=== PATIENT | male | born 1995 | race Caucasian/White ===

== ENCOUNTER 2017-09-08 22:56 | Emergency (ER) | payer OTHER ==
[~2017-09-08] VITALS: Ht 188 cm; Wt 68.0 kg
[2017-09-08] MEDS ORDERED: FAMOTIDINE 20 MG (PEPCID) TABLET PO STA (23:24)
--- NOTE | 2017-09-08 23:24 | ED Chest Pain ---
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 PT DESCRIBES PAIN "BURNING". NO OTHER C/O VOICED Nursing Sepsis Screen: No Definite Risk Source: patient, other Exam Limitations: no limitations History of Present Illness Date Seen by Provider: Sep 08, 2017 Time Seen by Provider: 23:13 Initial Comments The patient presents to the ER by private conveyance with a chief complaint of approximately one to 2 hours ago he started experiencing a pain in the center of his chest that was gripping and feeling burning sensation. He does have a history of acid reflux and has used Tums in the past that of help however he did not take any Tums tonight. He is not on any medications. He does have a history of pectus excavatum. He says it hurts when he takes deeper breaths or if we push on his chest. He does not have any cough, history of asthma, smoking , coronary disease, family primary history of coronary disease, high blood pressure, cholesterolemia, thyroid disorder, diabetes. He has not had any recent trauma. He said he was just sitting on his couch after eating when the pain came on. He describes it as moderate to severe. He does not have allergies to any medicines nor does he take any routine medicines. Allergies and Home Medications Allergies Coded Allergies: No Known Drug Allergies (Unverified , 09/08/17) Patient Home Medication List Home Medication List Reviewed: Yes Review of Systems Constitutional: No chills, No fever EENTM: No Blurred Vision, No Double Vision Respiratory: Denies Cough, Denies Shortness of Air Cardiovascular: See HPI, Chest Pain; Denies Edema, Denies Irregular Heart Rate , Denies Lightheadedness, Denies Palpitations, Denies Syncope Gastrointestinal: Denies Abdomen Distended, Denies Abdominal Pain, Denies Constipated, Denies Diarrhea Genitourinary: Denies Discharge, Denies Drainage Musculoskeletal: No back pain, No joint pain Past Frjxobl-Jgaaxe-Dcmzea Hx Patient Social History Alcohol Use: Denies Use Recreational Drug Use: No Smoking Status: Never a Smoker Recent Foreign Travel: No Contact w/Someone Who Travel: No Recent Infectious Disease Expo: No Recent Hopitalizations: No Physical Abuse: No Sexual Abuse: No Mistreated: No Fear: No Past Medical History Surgeries: No Respiratory: No Cardiac: Yes (PECTUS EXCAVATUM) Genitourinary: No Gastrointestinal: No Musculoskeletal: No Endocrine: No HEENT: No Cancer: No Psychosocial: No Nursing Suicide Risk Score: 0 Blood Disorders: No Physical Exam Vital Signs Vital Signs - First Documented Capillary Refill : Less Than 3 Seconds General Appearance: No Apparent Distress, WD/WN HEENT: PERRL/EOMI, TMs Normal, Normal ENT Inspection, Pharynx Normal Neck: Full Range of Motion, Normal Inspection, Non Tender, Supple Respiratory: Lungs Clear, Normal Breath Sounds, No Accessory Muscle Use, No Respiratory Distress, Other (chest pain recreatable by direct pressure over the manubrium and left of manubrium.) Cardiovascular: Regular Rate, Rhythm, No Edema, No Gallop, No Murmur, Normal Peripheral Pulses Neurologic/Psychiatric: Alert, Oriented x3 Skin: Normal Color, Warm/Dry Progress/Results/Core Measures My Orders Orders - JONI VU Lidocaine 2% Viscous 15 Ml (Xylocaine Vi (09/08/17 23:30) Antacid Suspension (Mylanta Suspension (09/08/17 23:30) Famotidine Tablet (Pepcid Tablet) (09/08/17 23:24) Medications Given in ED Current Medications Medications Dose Ordered Sig/Franky Route Start Time Stop Time Status Last Admin Dose Admin Al Hydrox/Mg Hydrox/Simethicone 30 ml ONCE ONCE PO 09/08/17 23:30 09/08/17 23:31 DC 09/08/17 23:32 30 ML Lidocaine HCl 15 ml ONCE ONCE PO 09/08/17 23:30 09/08/17 23:31 DC 09/08/17 23:32 15 ML Vital Signs/I&O 09/08/17 09/08/17 23:04 23:04 Temp 98.5 Pulse 65 Resp 18 B/P (MAP) 132/64 (86) Pulse Ox 99 O2 Delivery Room Air Room Air Blood Pressure Mean: 86 Progress Note #1: Time: 23:24 Progress Note The patient appears to be having chest wall pain on history uncle examination however he also has a history of GERD sore and give him a GI cocktail that doesn 't make any improvement then we'll recommend NSAIDs. Progress Note #2: Time: 23:59 Progress Note On reexamination the patient's pain is unchanged after the GI cocktail or Pepcid. His pain is still reproducible to direct palpation and deep inspiration. Discussed all the other possibilities lungs, pleurisy, esophageal, coronary, vasculature, clots, soft tissue and is still most likely chest wall pain. His girlfriend's concerned that we should maybe do an EKG to workup whether or not he has coronary or other heart disorder. The patient's pulse is still very regular and steady in the mid 60s. We discussed the risks benefits and alternatives to doing this and offered him an EKG and troponin. The patient declined the EKG and troponin at this time but wants to follow up with his primary care physician outpatient. We offered him a dose of NSAIDs tonight and ER but he says he has ibuprofen at home he would prefer to take. Departure Impression Primary Impression: Anterior chest wall pain Additional Impression: Pectus excavatum Disposition: HOME, SELF-CARE Condition: Stable Departure-Patient Inst. Decision time for Depature: 00:02 Referrals: NO,LOCAL PHYSICIAN (PCP) Primary Care Physician Patient Instructions: Chest Pain That Is Not Caused by the Heart (DC) Add. Discharge Instructions: Chest wall pain is best treated with NSAIDs such as ibuprofen 800 mg, 4 tablets every 8 hours [id number] for about 2 weeks. Optionally you can use Naprosyn 2 tablets twice a day for 2 weeks. If you're still having pain in addition to this you can use 1000 mg of Tylenol every 8 hours as needed. Plan to follow up with your primary care physician in the next 1-2 weeks. If you begin to experience worsening chest pain, nausea, cough, fever or other serious worrisome concerns you should return to care sooner. If your pain doesn't improve and the first 2-3 days then you can corn picker the prednisone and take 2 tablets daily to completion. All discharge instructions reviewed with patient and/or family. Voiced understanding. Scripts Prednisone (Prednisone) 20 Mg Tab 40 MG PO DAILY for 3 Days, #6 TAB 0 Refills Prov: JONI VU 09/09/17 Work/School Note: Work Release Form Date Seen in the Emergency Department: Sep 09, 2017 Return to Work: Sep 10, 2017 Restrictions: No Restrictions JONI VU Sep 08, 2017 23:24
[2017-09-08] MEDS ORDERED: ANTACID SUSP 30 ML UDC (MYLANTA) PO ONE (23:30)
[2017-09-08] MEDS ORDERED: LIDOCAINE 2% VISCOUS 15 ML UDC PO ONE (23:30)
[2017-09-09] MEDS ORDERED: PRD20T PO (00:04)
[2017-09-09 00:10] VITALS: BP 127/58
--- OUTSIDE RECORDS SUMMARY | 2017-09-09 12:23 | XMS REPORT | Continuity of Care Document ---
Author Author [facility] Address Unknown Phone Unavailable Allergies There is no data. Medications There is no data. Problems Date Dx Coded Attending Type Code Diagnosis Diagnosed By 04/17/2013 TATI BARDALES DO V20.2 WELL CHILD 04/17/2013 TATI BARDALES DO V70.3 OTHER GENERAL MEDICAL EXAMINATION FOR ADMINISTRATIVE PURPOSES Procedures There is no data. Results There is no data. Encounters ACCT No. Visit Date/Time Discharge Status Pt. Type Provider Facility Loc./Unit Complaint [id number] 04/17/2013 15:21:00 04/17/2013 23:59:59 CLS Outpatient TAIT BARDALES DO
== END 2017-09-09 00:10 | disposition home or self-care (01) ==
LOC: ER 22:58
DX: R07.89 Other chest pain (principal); Q67.6 Pectus excavatum; K21.9 Gastro-esophageal reflux disease without esophagitis
CPT/HCPCS: 99283

== ENCOUNTER → 2020-06-03 | Outpatient (CLI) | payer BC, MEDICAID ==
[~2020-06-03] MED LIST: PRD20T PO
--- NOTE | 2020-06-03 08:42 | Diagnostic Imaging Report ---
INDICATION: Abdominal pain with nausea and vomiting. TECHNIQUE: Multiple grayscale sonographic images were obtained of the right upper quadrant of the abdomen. CORRELATION STUDY: None FINDINGS: LIVER: There is uniform echotexture within the visualized portions of the liver. There is normal, hepatopedal direction of flow within the main portal vein. Liver length 14.8 cm. GALLBLADDER: The gallbladder demonstrates no definitive shadowing gallstones. No abnormal gallbladder wall thickening or pericholecystic fluid. COMMON BILE DUCT: Nondilated at 0.2 cm. PANCREAS: Visualized portions appearing unremarkable. AORTA/IVC: Not well visualized. RIGHT KIDNEY: 10.9 x 3.4 x 3.9 cm. No hydronephrosis. OTHER: None. IMPRESSION: 1. Negative appearing right upper quadrant abdominal ultrasound. Dictated by: Dictated on workstation # [id number]
== END ==
LOC: RAD 08:00
PROVIDERS: ATTEND Surgery
DX: R10.9 Unspecified abdominal pain (principal); R11.2 Nausea with vomiting, unspecified
CPT/HCPCS: 76705

== ENCOUNTER → 2020-06-21 | Outpatient (CLI) | payer BC, MEDICAID ==
[~2020-06-21] MED LIST changes: +CATHETER FLUSH 10 ML SYR IV PRN
--- NOTE | 2020-06-21 12:06 | Diagnostic Imaging Report ---
INDICATION: Abdominal pain, nausea vomiting COMPARISON: Gallbladder ultrasound of 06/03/2020 TECHNIQUE: Anterior scintigraphic imaging of the abdomen was performed after the intravenous administration of 5.32 mCi Tc-99m Choletec. FINDINGS: The upper abdomen was imaged for 60 minutes with the gamma camera. There is prompt homogeneous uptake of radiopharmaceutical by the liver. There is activity in the common duct and gallbladder by 10 minutes. Small bowel activity is seen by 75 minutes. After 60 minutes, the patient received 8 oz of ensure by mouth. After 60 minutes, the gallbladder ejection fraction was calculated to be 99% which is normal. IMPRESSION: 1. Patent common and cystic bile ducts. 2. No gallbladder dysfunction. Dictated by: Dictated on workstation # [id number]
== END ==
LOC: CARD 09:30
PROVIDERS: ATTEND Surgery
DX: R10.9 Unspecified abdominal pain (principal); R11.2 Nausea with vomiting, unspecified
CPT/HCPCS: 78227; A9537

== ENCOUNTER 2022-06-26 21:11 | Emergency (ER) | payer MEDICAID ==
[~2022-06-26] VITALS: Ht 188 cm; Wt 86.0 kg
[~2022-06-26 21:11] MED LIST changes: -CATHETER FLUSH 10 ML SYR IV PRN
[2022-06-26 21:20] VITALS: BP 120/75
--- NOTE | 2022-06-26 21:24 | ED GI ---
General Stated Complaint: DIARRHEA/CHILLS/VOMITING/ABD PAIN/BODYACHES Source of Information: Patient Exam Limitations: No Limitations History of Present Illness Date Seen by Provider: Jun 26, 2022 Time Seen by Provider: 21:20 Initial Comments Patient is a 27-year-old male who presents to the emergency department for evaluation of nausea/vomiting/diarrhea, body aches, and general malaise that began earlier today. Patient does have children at home with GI symptoms. Patient has not taken any medications for the symptoms since they began. Patient denies any blood in his stool or vomit. States he does have some diffuse crampy abdominal pain that worsens prior to him vomiting or having an episode of diarrhea. States he has not checked his temperature but has had chills. Allergies and Home Medications Allergies Coded Allergies: No Known Drug Allergies (Unverified , 09/08/17) Patient Home Medication List Home Medication List Reviewed: Yes Prednisone (Prednisone) 20 Mg Tab, 40 MG PO DAILY Prescribed by: JONI VU on 09/09/17 0004 Review of Systems Review of Systems Constitutional: see HPI, chills EENTM: No Symptoms Reported Respiratory: No Symptoms Reported Cardiovascular: No Symptoms Reported Gastrointestinal: See HPI, Abdominal Pain, Diarrhea, Nausea, Vomiting Genitourinary: No Symptoms Reported Musculoskeletal: no symptoms reported Skin: no symptoms reported Psychiatric/Neurological: No Symptoms Reported Endocrine: No Symptoms Reported Hematologic/Lymphatic: No Symptoms Reported Past Ojlmbfz-Nxgujf-Wqbytx Hx Past Medical History Surgeries: No Respiratory: No Cardiac: Yes (PECTUS EXCAVATUM) Genitourinary: No Gastrointestinal: No Musculoskeletal: No Endocrine: No HEENT: No Cancer: No Psychosocial: No Blood Disorders: No Physical Exam Vital Signs Capillary Refill : Height/Weight/BMI Height: 6'2.00" Weight: 150lbs. oz. [id number]; BMI Method:Stated General Appearance: WD/WN, no apparent distress HEENT: PERRL/EOMI, normal ENT inspection, TMs normal, pharynx normal Neck: non-tender, full range of motion, supple, normal inspection Respiratory: chest non-tender, lungs clear, normal breath sounds, no respiratory distress, no accessory muscle use Cardiovascular: regular rate, rhythm Gastrointestinal: normal bowel sounds, soft, tenderness Extremities: normal range of motion, non-tender Neurologic/Psychiatric: no motor/sensory deficits, alert, normal mood/affect, oriented x 3 Skin: normal color, warm/dry Progress/Results/Core Measures Results/Orders Lab Results Laboratory Tests Test 06/26/22 21:28 Range/Units White Blood Count 17.1 H 4.3-11.0 10^3/uL Red Blood Count 6.08 H 4.30-5.52 10^6/uL Hemoglobin 17.1 13.3-17.7 g/dL Hematocrit 49 40-54 % Mean Corpuscular Volume 80 80-99 fL Mean Corpuscular Hemoglobin 28 25-34 pg Mean Corpuscular Hemoglobin Concent 35 32-36 g/dL Red Cell Distribution Width 12.3 10.0-14.5 % Platelet Count 362 130-400 10^3/uL Mean Platelet Volume 10.4 9.0-12.2 fL Immature Granulocyte % (Auto) 0 % Neutrophils (%) (Auto) 89 H 42-75 % Lymphocytes (%) (Auto) 3 L 12-44 % Monocytes (%) (Auto) 6 0-12 % Eosinophils (%) (Auto) 1 0-10 % Basophils (%) (Auto) 0 0-10 % Neutrophils # (Auto) 15.3 H 1.8-7.8 10^3/uL Lymphocytes # (Auto) 0.5 L 1.0-4.0 10^3/uL Monocytes # (Auto) 1.1 H 0.0-1.0 10^3/uL Eosinophils # (Auto) 0.1 0.0-0.3 10^3/uL Basophils # (Auto) 0.1 0.0-0.1 10^3/uL Immature Granulocyte # (Auto) 0.1 0.0-0.1 10^3/uL Neutrophils % (Manual) 81 % Lymphocytes % (Manual) 2 % Monocytes % (Manual) 4 % Eosinophils % (Manual) 1 % Band Neutrophils 12 % Toxic Granulation 2+ Platelet Estimate NORMAL Poikilocytosis SLIGHT Sodium Level 138 135-145 MMOL/L Potassium Level 3.8 3.6-5.0 MMOL/L Chloride Level 101 98-107 MMOL/L Carbon Dioxide Level 22 21-32 MMOL/L Anion Gap 15 H 5-14 MMOL/L Blood Urea Nitrogen 17 7-18 MG/DL Creatinine 1.29 0.60-1.30 MG/DL Estimat Glomerular Filtration Rate 79 BUN/Creatinine Ratio 13 Glucose Level 110 H 70-105 MG/DL Calcium Level 10.6 H 8.5-10.1 MG/DL Corrected Calcium 8.5-10.1 MG/DL Total Bilirubin 0.8 0.1-1.0 MG/DL Aspartate Amino Transf (AST/SGOT) 19 5-34 U/L Alanine Aminotransferase (ALT/SGPT) 26 0-55 U/L Alkaline Phosphatase 75 40-136 U/L Total Protein 9.6 H 6.4-8.2 GM/DL Albumin 5.6 H 3.2-4.5 GM/DL My Orders Orders - MORRIS,DEN COST ACCOUNTANT Cbc With Automated Diff (06/26/22 21:22) Comprehensive Metabolic Panel (06/26/22 21:22) Iv/Invasive Line Insertion .IV INSERT (06/26/22 21:22) Ondansetron Injection (Zofran Injectio (06/26/22 21:30) Lactated Ringers (Lr 1000 Ml Iv Solution (06/26/22 21:45) Manual Differential (06/26/22 21:28) Hyoscyamine Sl Tablet (Levsin Sl Tablet) (06/26/22 22:15) Medications Given in ED Current Medications Medications Dose Ordered Sig/Franky Route Start Time Stop Time Status Last Admin Dose Admin Ondansetron HCl 4 mg ONCE ONCE IVP 06/26/22 21:30 06/26/22 21:31 DC 06/26/22 21:35 4 MG Progress Progress Note : Progress Note Patient is nontoxic and well-hydrated on exam. Abdominal exam is reassuring with some diffuse tenderness to palpation but no rigidity or distention. Patient's vital signs are reassuring. No clinical evidence of significant dehydration noted on exam. Patient is awake alert and answers all questions appropriately. He was ambulatory to the exam room without issue. Orders placed for CBC, CMP, IV insertion, IV Zofran, and lactated Ringer's bolus. CBC notable for leukocytosis which is likely reactive. CMP is reassuring without any significant metabolic derangements. Patient and/or significant improvement after the IV bolus and dose of Zofran. Patient was given a sublingual dose of Levsin to help with the abdominal cramping. Patient will be discharged home with recommendations for supportive care. Follow-up with PCP. Return precautions for urgent symptomology discussed. Patient verbalized understanding. Departure Impression Primary Impression: AGE (acute gastroenteritis) Disposition: 01 HOME, SELF-CARE Condition: Stable Departure-Patient Inst. Decision time for Depature: 22:00 Referrals: NO,LOCAL PHYSICIAN (PCP/Family) Primary Care Physician Patient Instructions: Viral Gastroenteritis, Adult (DC) Scripts Hyoscyamine Sulfate (Hyoscyamine Sulfate) 0.125 Mg Tab.subl 0.125 MG SL Q6H PRN for CRAMPS for 5 Days, #20 TAB 0 Refills Prov: DEN MORRIS APRN 06/26/22 Ondansetron (Ondansetron Odt) 4 Mg Tab.rapdis 4 MG SL Q4H PRN for NAUSEA/VOMITING for 3 Days, #18 TAB 0 Refills Prov: DEN MORRIS APRN 06/26/22 DEN MORRIS APRN Jun 26, 2022 21:24
[2022-06-26] MEDS ORDERED: ONDANSETRON 4 MG/2 ML (SDV) Z0FRAN IVP ONE (21:30)
[2022-06-26 21:35] LABS: BASOPHILS # (AUTO) 0.1 10^3/uL (0.0-0.1); BASOPHILS % (AUTO) 0 % (0-10); EOSINOPHILS # (AUTO) 0.1 10^3/uL (0.0-0.3); EOSINOPHILS % (AUTO) 1 % (0-10); HEMATOCRIT 49 % (40-54); HEMOGLOBIN 17.1 g/dL (13.3-17.7); LYMPHOCYTES # (AUTO) 0.5 10^3/uL (1.0-4.0); LYMPHOCYTES % (AUTO) 3 % (12-44); MEAN CORPUSCULAR HEMOGLOBIN 28 pg (25-34); MEAN CORPUSCULAR HGB CONC 35 g/dL (32-36); MEAN CORPUSCULAR VOLUME 80 fL (80-99); MEAN PLATELET VOLUME 10.4 fL (9.0-12.2); MONOCYTES # (AUTO) 1.1 10^3/uL (0.0-1.0); MONOCYTES % (AUTO) 6 % (0-12); NEUTROPHILS # (AUTO) 15.3 10^3/uL (1.8-7.8); NEUTROPHILS % (AUTO) 89 % (42-75); PLATELET COUNT 362 10^3/uL (130-400); WHITE BLOOD COUNT 17.1 10^3/uL (4.3-11.0)
[2022-06-26 21:45] LABS: ALBUMIN 5.6 GM/DL (3.2-4.5); CHLORIDE 101 MMOL/L (98-107); POTASSIUM 3.8 MMOL/L (3.6-5.0); SODIUM 138 MMOL/L (135-145)
[2022-06-26] MEDS ORDERED: LACTATED RINGERS 1,000 ML IV SCH (21:45)
[2022-06-26 21:46] LABS: CALCIUM 10.6 MG/DL (8.5-10.1)
[2022-06-26 21:47] LABS: GLUCOSE 110 MG/DL (70-105); TOTAL PROTEIN 9.6 GM/DL (6.4-8.2)
[2022-06-26 21:48] LABS: CARBON DIOXIDE 22 MMOL/L (21-32)
[2022-06-26 21:49] LABS: BILIRUBIN,TOTAL 0.8 MG/DL (0.1-1.0)
[2022-06-26 21:51] LABS: ALKALINE PHOSPHATASE 75 U/L (40-136); CREATININE SERUM 1.29 MG/DL (0.60-1.30); GFR ESTIMATED 79
[2022-06-26 21:52] LABS: BUN/CREATININE RATIO 13
[2022-06-26 21:54] LABS: ALANINE AMINOTRANSFERASE 26 U/L (0-55)
[2022-06-26 21:56] LABS: BAND NEUTROPHILS 12 %; EOSINOPHILS % (MANUAL) 1 %; LYMPHOCYTES % (MANUAL) 2 %; MONOCYTES % (MANUAL) 4 %; NEUTROPHILS % (MANUAL) 81 %; PLATELET ESTIMATE NORMAL
[2022-06-26 21:57] LABS: POIKILOCYTOSIS SLIGHT; TOXIC GRANULATION/VACUOLAZATIO 2+
[2022-06-26] MEDS ORDERED: ONDA4TAB11 SL (22:11)
[2022-06-26] MEDS ORDERED: HYOS-19 SL (22:11)
[2022-06-26] MEDS ORDERED: HYOSCYAMINE 0.125 MG (LEVSIN) TAB PO ONE (22:15)
== END 2022-06-26 22:42 | disposition home or self-care (01) ==
LOC: EDUNIT# 21:11 → ER 21:14
DX: K52.9 Noninfective gastroenteritis and colitis, unspecified (principal)
CPT/HCPCS: 36415; 80053; 85007; 85027; 99283